=== PATIENT | male | born 2005 | race Two or more races ===

== ENCOUNTER 2024-09-21 14:16 | Emergency (ER) | payer MEDICAID, OTHER ==
[~2024-09-21] VITALS: Ht 185.4 cm; Wt 125.1 kg
[2024-09-21] MEDS ORDERED: LIDOCAINE 1% HCL (LOCAL ANESTH.) INJ 20ML MDV ID ONE (16:15)
--- NOTE | 2024-09-21 16:23 | ED.PDOC ---
HPI Comments A 18 year old male presents to the ED c/o laceration of right fifth finger. Patient states he was hitting the bottom of a glass cup with his right hand and the glass accidentally broke into his hand. Patient sustained a laceration on his right 5th finger. Bleeding is controlled at this time. Patient is able to flex and extend his finger with a full range of motion. Patient denies fever, SOB, chest pain, abdominal pain, nausea, vomiting, diarrhea, headache, dizziness. No other symptoms or modifying factors reported at this time. Patient is alert and oriented x4 and has a stable gait. Chief Complaint: Laceration Time Seen by MD: 16:14 Primary Care Provider: UNKNOWN Reviewed Notes: Nurses Notes, Medications, Allergies Allergies: Coded Allergies: NO KNOWN ALLERGIES (Unverified , 09/21/24) Information Source: Patient Mode of Arrival: Ambulatory Severity: Moderate Severity of Laceration: Controlled Bleeding Complexity: Simple Timing: Hours Prehospital treatment: None Laceration Location: Digit #5 Mechanism: Glass Last Tetanus: > 5 Years Laceration Length (cm): 2 Skin Type: Linear Depth of Injury: Skin, SQ Tendon Injury: 0% Capillary Refill: < 3 seconds Tender: Mild Discharge: None Erythema: None Associated Signs and Symptoms: None Past Medical History PAST MEDICAL HISTORY: Denies Surgical History: Denies all surgeries Family History Family History: Reviewed,noncontributory to illness Social History Smoker: Non-Smoker Alcohol: Denies ETOH Use Drugs: Denies Drug Use Lives In: Home Constitutional: denies: chills, diaphoresis, fatigue, fever, malaise, sweats, weakness, others EENTM: denies: blurred vision, double vision, ear bleeding, ear discharge, ear drainage, ear pain, ear ringing, eye pain, eye redness, hearing loss, mouth pain, mouth swelling, nasal discharge, nose bleeding, nose congestion, nose pain, photophobia, tearing, throat pain, throat swelling, voice changes, others Respiratory: denies: cough, hemoptysis, orthopnea, SOB at rest, shortness of breath, SOB with excertion, stridor, wheezing, others Cardiovascular: denies: chest pain, dizzy spells, diaphoresis, Dyspnea on exertion, edema, irregular heart beat, left arm pain, lightheadedness, palpitations, PND, syncope, others Gastrointestinal: denies: abdomen distended, abdominal pain, blood streaked bowels, constipated, diarrhea, dysphagia, difficulty swallowing, hematemesis, melena, nausea, poor appetite, poor fluid intake, rectal bleeding, rectal pain, vomiting, others Genitourinary: denies: burning, dysuria, flank pain, frequency, hematuria, incontinence, penile discharge, penile sore, pain, testicle pain, testicle swelling, urgency, others Neurological: denies: dizziness, fainting, headache, left sided numbness, left sided weakness, numbness, paresthesia, pre-existing deficit, right sided numb ness, right sided weakness, seizure, speech problems, tingling, tremors, weakness, others Musculoskeletal: denies: back pain, gout, joint pain, joint swelling, muscle pain, muscle stiffness, neck pain, others Integumetry: reports: laceration (laceration of right fifth finger); denies: bruises, change in color, change in hair/nails, dryness, lesions, lumps, rash, wounds, others Allergic/Immunocompromised: denies: Difficulty Healing, Frequent Infections, Hives, Itching, others Hematologic/Lymphatic: denies: anemia, blood clots, easy bleeding, easy bruising, swollen glands, others Endocrine: denies: excessive hunger, excessive sweating, excessive thirst, excessive urination, flushing, intolerance to cold, intolerance to heat, unexplained weight gain, unexplained weight loss, others Psychiatric: denies: anxiety, bipolar disorder, depression, hopeless, panic disorder, schizophrenia, sleepless, suicidal, others All Other Systems: Reviewed and Negative Physical Exam General Appearance: No Apparent Distress, Normal HEENT: Normal ENT Inspection, Pharynx Normal, TMs Normal Neck: Full Range of Motion, Non-Tender, Normal, Normal Inspection Respiratory: Chest Non-Tender, Lungs Clear, No Accessory Muscle Use, No Respiratory Distress, Normal Breath Sounds Cardiovascular: No Edema, No JVD, No Murmur, No Gallop, Normal Peripheral Pulses, Regular Rate/Rhythm Breast Exam: Deferred Gastrointestinal: No Organomegaly, Non Tender, No Pulsatile Mass, Normal Bowel Sounds, Soft Genitalia: Deferred Pelvic: Deferred Rectal: Deferred Extremities: No calf tenderness, Normal capillary refill, Normal inspection, Normal range of motion, Non-tender, No pedal edema Musculoskeletal : Apperance: Normal Neurologic: Alert, telecommunications line installer II-XII nml as Tested, No Motor Deficits, Normal Affect, Normal Mood, No Sensory Deficits Cerebellar Function: Normal Reflexes: Normal Skin: Dry, Lacerations (1cm laceration noted to knuckle region of right fifth finger and a 2.5 cm laceration of ulnar aspect of 5th middle phalanx. Bleeding controlled. Full ROM noted.), Normal Color, Warm Lymphatic: No Adenopathy Was a procedure done? Was a procedure done?: Yes Sedation Sedation?: No Laceration Repair : Location Right fifth finger Length 1cm (knuckle region), 2.5cm Ulnar aspect of middle phalanx region Anesthetic: Lidocaine, Without epi Laceration Repair Prep: Saline, by Irrigation Laceration Repair Wound Comple: epidermis/dermis repair Laceration Repair: Number of sutures (3 on knuckle region, 6 on ulnar aspect of middle phalanx: 9 total), Skin, SQ, Size (4-0 ethilon), Nylon, Simple, Gauze Informed consent obtained: No Risks, benefits, and alternati: Yes Differential diagnosis Generic Laceration: Retained Foriegn Body, Neurovascular Injury, Tendon Injury, Abrasion/Contusion, Laceration, Avulsion, Amputation Differential Diagnosis: N/A X-Ray, Labs, Meds, VS Vital Signs Date Time Temp Pulse Resp B/P (MAP) Pulse Ox O2 Delivery O2 Flow Rate FiO2 09/21/24 14:33 98.9 94 16 134/89 (104) 98 98.9 Current Medications Medications (Trade) Dose Ordered Sig/Boris Route Start Time Stop Time Status Last Admin Diphtheria/ Tetanus/Acell Pertussis (Boostrix T-Dap) 0.5 ml ONCE ONCE IM 09/21/24 16:15 09/21/24 16:16 DC 09/21/24 17:04 X-Ray, Labs, Meds, VS Comment External medical records reviewed: [None] Independent historians: [None] Social determinants of health: [None] Labs ordered: None Reviewed and interpreted results: None Radiology imaging ordered: None Treatments ordered: Tetanus 0.5ml IM, Laceration repair Procedures performed: Laceration repair, see procedure section. Critical care time: None Based on the history of present illness and physical exam, patient will be discharged home. Shared decision making: Patient instructed to follow up with their primary care physician in 1-2 days for re-evaluation of symptoms. Patient verbalizes understanding to return to ED for new or worsening symptoms of if follow up with PCP cannot be obtained. Patient understands and feels comfortable going home at this time. All questions addressed at time of discharge. Time of 1ST Reevaluation: 17:16 Reevaluation 1ST: Improved Patient Education/Counseling: Diagnosis, Treatment, Need For Follow Up Family Education/Counseling: Diagnosis, Treatment, Need For Follow Up Departure 1 Departure Time of Disposition: 17:15 Impression: Primary Impression: Laceration of right little finger Qualified Codes: S61.216A - Laceration without foreign body of right little finger without damage to nail, initial encounter Disposition: HOME / SELF CARE / HOMELESS Condition: Stable Additional Instructions: Follow up with PCP in 1-2 days. Return to ED in 7-10 days for suture removal. Return to ED for any new or worsening symptoms. Discharged With: Self Critical Care Note Critical Care Time?: No Stability Stability form required: No I personally scribed for JACK OVALLE MD ([email or web address]) on 09/21/24 at 16:23. Electronically submitted by Jonathan Romero ([email or web address]). I personally scribed for JACK OVALLE MD ([email or web address]) on 09/21/24 at 17:14. Electronically submitted by Jonathan Romero ([email or web address]). JACK OVALLE MD Sep 21, 2024 16:23
[2024-09-21] MEDS: TETANUS-DIPTH-ACEL PERTUSSIS 0.5ML SYR Tdap IM ONE (17:04)
[2024-09-21 17:40] VITALS: BP 129/77; PULSE 82; RESP 18; TEMP 98; O2SAT 98
== END 2024-09-21 17:16 | disposition home or self-care (01) ==
LOC: ER 14:19
DX: S61.216A Laceration without foreign body of right little finger without damage to nail, initial encounter (principal); W25.XXXA Contact with sharp glass, initial encounter; Y93.89 Activity, other specified; Y92.89 Other specified places as the place of occurrence of the external cause; Y99.8 Other external cause status
CPT/HCPCS: 12002; 90471; 90715; 99283; J2003